=== PATIENT | female | born 2000 | race Two or more races ===

== ENCOUNTER 2022-07-23 10:52 | Emergency (ER) | payer OTHER ==
[~2022-07-23] VITALS: Ht 154.9 cm; Wt 49.4 kg
== END 2022-07-23 19:41 | disposition home or self-care (01) ==
LOC: ER 10:52
DX: N83.02 Follicular cyst of left ovary (principal); N83.01 Follicular cyst of right ovary; N75.0 Cyst of Bartholin's gland; K52.9 Noninfective gastroenteritis and colitis, unspecified; R10.2 Pelvic and perineal pain